=== PATIENT | female | born 1950 | race Caucasian/White ===

== ENCOUNTER → 2018-12-01 | Outpatient (CLI) | payer MEDICARE, BC ==
[~2018-12-01] MED LIST: HYDR25TA6 PO; LOSA100T14 PO; METF500T17 PO; OMNIPAQUE 350 MG/ML, 150 ML BOTTLE ONE; PRAV10TA2 PO; RIVA20TA PO; SOTA80TA18 PO
== END | disposition home or self-care (01) ==
LOC: CFH 13:24
PROVIDERS: ATTEND Internal Medicine Cardiovascular Disease
DX: I48.0 Paroxysmal atrial fibrillation (principal)
CPT/HCPCS: 71046; 75572; Q9967

== ENCOUNTER 2018-12-19 11:57 | Day surgery (SDC) | payer MEDICARE, BC ==
[~2018-12-19] VITALS: Ht 170.2 cm; Wt 79.5 kg
[~2018-12-19 11:57] MED LIST changes: -OMNIPAQUE 350 MG/ML, 150 ML BOTTLE ONE
[2018-12-19 13:41] VITALS: BP 122/94
[2018-12-19 14:17] LABS: ANION GAP 7 mmol/L (5-15); CALCIUM 8.8 mg/dL (8.5-10.1); CHLORIDE 104 mmol/L (98-107); CREATININE 0.73 mg/dL (0.55-1.02)
[2018-12-19] MEDS ORDERED: SUCCINYLCHOLINE 20 MG/ML, 10ML ONE (14:41)
[2018-12-19] MEDS ORDERED: MIDAZOLAM 1 MG/ML, 5ML ONE (14:41)
[2018-12-19] MEDS ORDERED: PROPOFOL 10 MG/ML, 20ML ONE (14:41)
== END 2018-12-19 16:21 | disposition home or self-care (01) ==
LOC: CACL 11:57
PROVIDERS: ATTEND Internal Medicine Cardiovascular Disease
DX: I48.91 Unspecified atrial fibrillation (principal); I10 Essential (primary) hypertension; F17.200 Nicotine dependence, unspecified, uncomplicated; E11.9 Type 2 diabetes mellitus without complications
CPT/HCPCS: 36415; 80048; 92960; J2250; J2704; J0330

== ENCOUNTER 2018-12-31 12:24 | Day surgery (SDC) | payer MEDICARE, BC ==
[~2018-12-31] VITALS: Ht 170.2 cm; Wt 78.2 kg
[2018-12-31] MEDS ORDERED: SOTA120T26 PO (13:08)
[2018-12-31 13:09] VITALS: BP 107/85
[2018-12-31 13:27] LABS: ANION GAP 7 mmol/L (5-15); CALCIUM 8.9 mg/dL (8.5-10.1); CHLORIDE 105 mmol/L (98-107); CREATININE 0.76 mg/dL (0.55-1.02)
[2018-12-31] MEDS ORDERED: PROPOFOL 10 MG/ML, 20ML ONE (14:48)
== END 2018-12-31 16:17 | disposition home or self-care (01) ==
LOC: CACL 12:24
PROVIDERS: ATTEND Internal Medicine Cardiovascular Disease
DX: I48.91 Unspecified atrial fibrillation (principal); I10 Essential (primary) hypertension
CPT/HCPCS: 36415; 80048; 92960; 93005; J2704